=== PATIENT | male | born 1955 | race Caucasian/White ===

== ENCOUNTER 2023-08-17 16:25 | Emergency (ER) | payer BC ==
[2023-08-17 17:42] LABS: #Basophils 0.1 10x3/uL (0.0-0.2); #Eosinphils 0.3 10x3/uL (0.0-0.5); #Monocytes 0.6 10x3/uL (0.0-1.1); #Neutrophils 5.1 10x3/uL (1.5-8.4); %Basophils 0.7 % (0.0-2.0); %Eosinophils 3.6 % (0.0-6.0); %Neutrophils 56.5 % (40.0-75.0); Hematocrit 36.5 % (38.8-50.0); Hemoglobin 12.2 g/dL (13.5-17.5); Mean Corpuscular HGB CONC 33.4 g/dL (32.0-36.0); Mean Corpuscular Volume 92.6 fl (81.2-95.1); Mean Platelet Volume 10.5 fl (7.4-10.4); Platelet Count 228 10x3/uL (150-450); RBC Distribution Width 13.3 % (11.5-14.5); Red Blood Cell (RBC) Count 3.94 10x6/uL (4.32-5.72); White Blood Cell (WBC) Count 9.1 10x3/uL (3.5-10.5)
[2023-08-17 17:55] LABS: ALT (SGPT) 20 U/L (8-55); AST (SGOT) 28 U/L (5-34); Albumin 4.4 g/dL (3.4-4.8); Alkaline Phosphatase 90 U/L (40-110); Anion Gap 13 mmol/L (10-20); BUN (Urea Nitrogen) 23 mg/dL (8.4-25.7); Bilirubin, Total 0.3 mg/dL (0.2-1.2); Calc. Creatinine Clearance 0 mL/min (70-130); Carbon Dioxide 25 mmol/L (23-31); Chloride 105 mmol/L (98-107); Estimated GFR 98; Globulin 3.2 g/dL (2.4-3.5); Glucose 92 mg/dL (80-115); Potassium 4.3 mmol/L (3.5-5.1); Protein, Total 7.6 g/dL (5.8-8.1); Sodium 139 mmol/L (136-145)
[2023-08-17 18:01] LABS: Troponin I Less than 0.010 ng/mL (< 0.028)
[2023-08-17 19:38] LABS: Troponin I Less than 0.010 ng/mL (< 0.028)
== END 2023-08-17 20:25 | disposition home or self-care (01) ==
LOC: CSHERS 16:25
DX: I49.1 Atrial premature depolarization (principal); I49.3 Ventricular premature depolarization; D64.9 Anemia, unspecified
CPT/HCPCS: 36415; 80053; 84484; 85025; 93005